=== PATIENT | female | born 1965 | race Caucasian/White ===

== ENCOUNTER 2016-10-12 11:24 | Emergency (ER) | payer OTHER ==
[~2016-10-12] VITALS: Ht 172.7 cm; Wt 79.5 kg
[~2016-10-12 11:24] MED LIST: ALBU8HFA IH; GABA-531 PO; INSLAN SQ; METF500T PO; SIMV10TA6 PO
[2016-10-12 11:36] LABS: GLUCOSE,POINT OF CARE 159 MG/DL (70-110)
[2016-10-12] MEDS ORDERED: HydrOXYzine PAMOATE 50 MG CAPSULE PO ONE (12:15)
[2016-10-12] MEDS ORDERED: IBUPROFEN 600 MG TABLET PO ONE (13:15)
[2016-10-12 15:10] VITALS: BP 118/56
== END 2016-10-12 15:12 | disposition home or self-care (01) ==
LOC: EMS 11:31
DX: F41.9 Anxiety disorder, unspecified (principal); E11.40 Type 2 diabetes mellitus with diabetic neuropathy, unspecified; J45.909 Unspecified asthma, uncomplicated; E78.00 Pure hypercholesterolemia, unspecified; F17.210 Nicotine dependence, cigarettes, uncomplicated; Z79.4 Long term (current) use of insulin
CPT/HCPCS: 82962; 99283

== ENCOUNTER 2017-01-24 02:06 | Emergency (ER) | payer OTHER ==
[~2017-01-24] VITALS: Ht 172.7 cm; Wt 80.0 kg
[2017-01-24] MEDS ORDERED: PRIM50 PO (02:12)
[2017-01-24] MEDS ORDERED: DIPH25 PO (02:12)
[2017-01-24] MEDS ORDERED: MONT10TA21 PO (02:12)
[2017-01-24] MEDS ORDERED: KDUR10 PO (02:12)
[2017-01-24 02:22] LABS: GLUCOSE,POINT OF CARE 234 MG/DL (70-110)
[2017-01-24] MEDS ORDERED: DEXTROSE 50%-WATER 25 GM/50 ML SYRINGE IVP ONE (02:30)
[2017-01-24 02:40] LABS: ANION GAP 12 mmol/L (8-16); CALCIUM, TOTAL 8.5 mg/dL (8.8-10.5); CARBON DIOXIDE 25 mmol/L (22-29); CHLORIDE 98 mmol/L (98-107); CREATININE 0.66 mg/dL (0.60-1.30); GLOMERULAR FILTR. RATE CALC > 60 mL/min (>60); POTASSIUM 3.3 mmol/L (3.5-5.1); SODIUM SERUM 135 mmol/L (136-145); UREA NITROGEN, BLOOD 15 mg/dL (7-18)
[2017-01-24 02:43] LABS: BASOPHILS % (AUTO) 0.4 % (0.0-2.0); EOSINOPHILS % (AUTO) 0.3 % (1.0-6.0); HEMATOCRIT 35.4 % (36-46); HEMOGLOBIN 11.3 g/dL (12.0-16.0); LYMPHOCYTES # (AUTO) 0.6 K/uL (1.0-4.8); LYMPHOCYTES % (AUTO) 7.5 % (22.0-44.0); MEAN CORPUSCULAR HEMOGLOBIN 26.9 pg (26.0-34.0); MEAN CORPUSCULAR HGB CONC 31.9 G/dL (31.0-37.0); MEAN CORPUSCULAR VOLUME 84 fL (80-100); MONOCYTES # (AUTO) 0.1 K/uL (0.1-1.0); MONOCYTES % (AUTO) 1.8 % (2.0-9.0); NEUTROPHILS # (AUTO) 7.2 K/uL (1.8-7.7); PLATELET COUNT (AUTO) 448 K/uL (150-450); RED BLOOD CELL COUNT(AUTO) 4.19 MIL/uL (4.00-5.20)
[2017-01-24 02:46] LABS: ALANINE AMINOTRANSFERASE 24 U/L (12-78); ALBUMIN 3.7 g/dL (3.4-5.0); ASPARTATE AMINOTRANSFERASE 26 U/L (15-37); BILIRUBIN,TOTAL 0.2 mg/dL (0.1-1.0); TOTAL PROTEIN, SERUM 7.3 g/dL (6.4-8.2)
[2017-01-24 02:54] LABS: APPEARANCE,URINE CLEAR (CLEAR); GLUCOSE, URINE (UA) >=1000 mg/dL (NEGATIVE); KETONES,URINE >=80 mg/dL (NEGATIVE); LEUKOCYTE ESTERASE ,URINE NEGATIVE (NEGATIVE); OCCULT BLOOD,URINE NEGATIVE (NEGATIVE); PROTEIN,URINE NEGATIVE (NEGATIVE)
[2017-01-24 03:05] LABS: RBC,URINE 0-2 /HPF (0-2); SQUAMOUS EPITHELIAL CELL,UR Rare /LPF (None Seen); WBC,URINE 0-2 /HPF (0-5)
[2017-01-24 03:52] LABS: GLUCOSE,POINT OF CARE 162 MG/DL (70-110)
[2017-01-24 04:52] LABS: GLUCOSE COMMENT 1 Doctor Notified; GLUCOSE,POINT OF CARE 101 MG/DL (70-110)
[2017-01-24 05:32] VITALS: BP 131/81
== END 2017-01-24 05:54 | disposition home or self-care (01) ==
LOC: EMS 02:07
DX: E11.649 Type 2 diabetes mellitus with hypoglycemia without coma (principal); J45.909 Unspecified asthma, uncomplicated; E78.00 Pure hypercholesterolemia, unspecified; F17.210 Nicotine dependence, cigarettes, uncomplicated; Z79.4 Long term (current) use of insulin
CPT/HCPCS: 36415; 51702; 80053; 80307; 81001; 82962; 84703; 85025; 93005; 96374; 99285; G0480

== ENCOUNTER 2017-03-22 19:40 | Emergency (ER) | payer OTHER ==
[~2017-03-22] VITALS: Ht 172.7 cm; Wt 72.7 kg
[~2017-03-22 19:40] MED LIST changes: +DIPH25 PO; -GABA-531 PO; +KDUR10 PO; +MONT10TA21 PO; +PRIM50 PO
[2017-03-22 20:02] LABS: GLUCOSE,POINT OF CARE 109 MG/DL (70-110)
[2017-03-22] MEDS ORDERED: KETOROLAC TROMETHAMINE 60 MG/2 ML VIAL IM ONE (21:15)
[2017-03-22 22:00] VITALS: BP 129/84
== END 2017-03-22 22:00 | disposition home or self-care (01) ==
LOC: EMS 19:42
DX: M25.551 Pain in right hip (principal); E11.9 Type 2 diabetes mellitus without complications; E78.00 Pure hypercholesterolemia, unspecified; J45.909 Unspecified asthma, uncomplicated; F17.210 Nicotine dependence, cigarettes, uncomplicated; Z79.4 Long term (current) use of insulin
CPT/HCPCS: 73502; 82962; 96372; 99284; J1885

== ENCOUNTER 2017-10-02 22:49 | Emergency (ER) | payer OTHER ==
[~2017-10-02] VITALS: Ht 172.7 cm; Wt 74.5 kg
[2017-10-02] MEDS ORDERED: SERT50TA12 PO (22:59)
[2017-10-02 23:03] LABS: GLUCOSE,POINT OF CARE 110 MG/DL (70-110)
[2017-10-03] MEDS ORDERED: METHOCARBAMOL 500 MG TABLET PO ONE
[2017-10-03] MEDS ORDERED: KETOROLAC TROMETHAMINE 60 MG/2 ML VIAL IM ONE
[2017-10-03] MEDS ORDERED: MORPHINE SULFATE 4 MG/ML SYRINGE IM ONE (00:45)
[2017-10-03 01:47] VITALS: BP 117/69
== END 2017-10-03 01:49 | disposition home or self-care (01) ==
LOC: EMS 22:54
DX: S16.1XXA Strain of muscle, fascia and tendon at neck level, initial encounter (principal); J45.909 Unspecified asthma, uncomplicated; E11.9 Type 2 diabetes mellitus without complications; E78.00 Pure hypercholesterolemia, unspecified; F17.210 Nicotine dependence, cigarettes, uncomplicated; X58.XXXA Exposure to other specified factors, initial encounter; Y93.89 Activity, other specified; Y92.89 Other specified places as the place of occurrence of the external cause; Y99.8 Other external cause status
CPT/HCPCS: 82962; 96372; 99284; J1885; J2270

== ENCOUNTER 2017-11-15 11:53 | Emergency (ER) | payer OTHER ==
[~2017-11-15] VITALS: Ht 167.6 cm; Wt 71.8 kg
[~2017-11-15 11:53] MED LIST changes: +SERT50TA12 PO
[2017-11-15] MEDS ORDERED: BECL8.7A6 IH (12:04)
[2017-11-15] MEDS ORDERED: ALBU8HFA4 IH (12:04)
[2017-11-15 12:07] LABS: GLUCOSE,POINT OF CARE 74 MG/DL (70-110)
[2017-11-15 12:53] LABS: GLUCOSE,POINT OF CARE 64 MG/DL (70-110)
[2017-11-15 13:41] LABS: BASOPHILS % (AUTO) 0.8 % (0.0-2.0); EOSINOPHILS % (AUTO) 7.3 % (1.0-6.0); HEMATOCRIT 34.5 % (36-46); HEMOGLOBIN 11.7 g/dL (12.0-16.0); LYMPHOCYTES # (AUTO) 1.7 K/uL (1.0-4.8); LYMPHOCYTES % (AUTO) 26.3 % (22.0-44.0); MEAN CORPUSCULAR HEMOGLOBIN 28.1 pg (26.0-34.0); MEAN CORPUSCULAR HGB CONC 33.8 G/dL (31.0-37.0); MEAN CORPUSCULAR VOLUME 83 fL (80-100); MONOCYTES # (AUTO) 0.4 K/uL (0.1-1.0); MONOCYTES % (AUTO) 6.6 % (2.0-9.0); NEUTROPHILS # (AUTO) 3.8 K/uL (1.8-7.7); PLATELET COUNT (AUTO) 454 K/uL (150-450); RED BLOOD CELL COUNT(AUTO) 4.15 MIL/uL (4.00-5.20); RED CELL DISTRIBUTION WIDTH 16.8 % (11.5-14.5)
[2017-11-15 13:51] LABS: GLUCOSE,POINT OF CARE 120 MG/DL (70-110)
[2017-11-15 13:52] LABS: ANION GAP 6 mmol/L (8-16); CALCIUM, TOTAL 9.2 mg/dL (8.8-10.5); CARBON DIOXIDE 30 mmol/L (22-29); CHLORIDE 102 mmol/L (98-107); CREATININE 0.64 mg/dL (0.60-1.30); GLOMERULAR FILTR. RATE CALC > 60 mL/min (>60); GLUCOSE,RANDOM 90 mg/dL (70-110); POTASSIUM 3.6 mmol/L (3.5-5.1); SODIUM SERUM 138 mmol/L (136-145); UREA NITROGEN, BLOOD 13 mg/dL (7-18)
[2017-11-15 13:57] LABS: ALANINE AMINOTRANSFERASE 22 U/L (12-78); ALBUMIN 3.6 g/dL (3.4-5.0); ALKALINE PHOSPHATASE 83 U/L (46-116); ASPARTATE AMINOTRANSFERASE 12 U/L (15-37); BILIRUBIN,TOTAL 0.2 mg/dL (0.1-1.0); TOTAL PROTEIN, SERUM 7.2 g/dL (6.4-8.2)
[2017-11-15 13:58] LABS: AMPHET/METH SCREEN,URINE NEGATIVE (NEGATIVE); BARBITURATE SCREEN, URINE NEGATIVE (NEGATIVE); BENZODIAZEPINES SCREEN,URINE NEGATIVE (NEGATIVE); CANNABINOID SCREEN,URINE NEGATIVE (NEGATIVE); COCAINE SCREEN,URINE NEGATIVE (NEGATIVE); METHADONE SCREEN, URINE NEGATIVE (NEGATIVE); OPIATE SCREEN,URINE NEGATIVE (NEGATIVE); PHENCYCLIDINE SCREEN,URINE NEGATIVE (NEGATIVE)
[2017-11-15 14:13] LABS: APPEARANCE,URINE CLEAR (CLEAR); BILIRUBIN,URINE NEGATIVE (NEGATIVE); GLUCOSE, URINE (UA) NEGATIVE (NEGATIVE); KETONES,URINE NEGATIVE (NEGATIVE); LEUKOCYTE ESTERASE ,URINE NEGATIVE (NEGATIVE); NITRATE,URINE NEGATIVE (NEGATIVE); OCCULT BLOOD,URINE NEGATIVE (NEGATIVE); PROTEIN,URINE NEGATIVE (NEGATIVE); UROBILINOGEN,URINE 0.2 mg/dL (<=1.0)
[2017-11-15 15:10] VITALS: BP 130/87
[2017-11-15] MEDS ORDERED: METHOCARBAMOL 500 MG TABLET PO ONE (15:15)
[2017-11-15] MEDS ORDERED: KETOROLAC TROMETHAMINE 30 MG/ML VIAL IVP ONE (15:15)
[2017-11-16] MEDS ORDERED: CALC1TAB97 PO (08:25)
[2017-11-16] MEDS ORDERED: BECL8.7A7 IH (08:25)
[2017-11-16] MEDS ORDERED: DOCU250C90 PO (08:25)
[2017-11-16] MEDS ORDERED: SIMV10TA6 PO (08:25)
[2017-11-16] MEDS ORDERED: DIPH25CA48 PO (08:25)
== END 2017-11-15 15:37 | disposition home or self-care (01) ==
LOC: EMS 11:55
DX: S16.1XXA Strain of muscle, fascia and tendon at neck level, initial encounter (principal); J45.909 Unspecified asthma, uncomplicated; E11.9 Type 2 diabetes mellitus without complications; E78.00 Pure hypercholesterolemia, unspecified; F17.210 Nicotine dependence, cigarettes, uncomplicated; F19.90 Other psychoactive substance use, unspecified, uncomplicated; Z79.4 Long term (current) use of insulin; X58.XXXA Exposure to other specified factors, initial encounter; Y93.89 Activity, other specified; Y92.89 Other specified places as the place of occurrence of the external cause; Y99.8 Other external cause status
CPT/HCPCS: 36415; 80053; 80307; 81003; 82962; 85025; 96374; 99285; G0480; J1885

== ENCOUNTER 2017-11-16 08:12 | Emergency (ER) | payer OTHER ==
[~2017-11-16] VITALS: Ht 167.6 cm; Wt 71.8 kg
[~2017-11-16 08:12] MED LIST changes: +ALBU8HFA4 IH; +BECL8.7A6 IH
[2017-11-16] MEDS ORDERED: DIPH25CA48 PO (08:25)
[2017-11-16] MEDS ORDERED: BECL8.7A7 IH (08:25)
[2017-11-16] MEDS ORDERED: SIMV10TA6 PO (08:25)
[2017-11-16] MEDS ORDERED: DOCU250C90 PO (08:25)
[2017-11-16] MEDS ORDERED: CALC1TAB97 PO (08:25)
[2017-11-16 08:32] LABS: GLUCOSE,POINT OF CARE 91 MG/DL (70-110)
[2017-11-16] MEDS ORDERED: BUPIVACAINE HCL/PF 0.25% 10 ML VIAL INJ ONE (09:00)
[2017-11-16 10:49] VITALS: BP 120/70
== END 2017-11-16 11:03 | disposition home or self-care (01) ==
LOC: EMS 08:13
DX: L03.114 Cellulitis of left upper limb (principal); E11.9 Type 2 diabetes mellitus without complications; E78.00 Pure hypercholesterolemia, unspecified; J45.909 Unspecified asthma, uncomplicated; F15.90 Other stimulant use, unspecified, uncomplicated; F17.210 Nicotine dependence, cigarettes, uncomplicated; Z79.4 Long term (current) use of insulin
CPT/HCPCS: 10160; 82962; 99284; J3490

== ENCOUNTER 2017-11-17 10:17 | Emergency (ER) | payer OTHER ==
[~2017-11-17] VITALS: Ht 167.6 cm; Wt 71.8 kg
[~2017-11-17 10:17] MED LIST changes: +BECL8.7A7 IH; +CALC1TAB97 PO; +DIPH25CA48 PO; +DOCU250C90 PO
[2017-11-17 10:43] LABS: GLUCOSE,POINT OF CARE 85 MG/DL (70-110)
[2017-11-17] MEDS ORDERED: POVIDONE-IODINE 10% 15 ML SOLUTION UD TP ONE (11:15)
[2017-11-17] MEDS ORDERED: LIDOCAINE HCL 1% 10 ML VIAL INJ ONE (11:15)
[2017-11-17] MEDS ORDERED: CefTRIAXone SODIUM 1 GM/VIAL IM ONE (12:00)
[2017-11-17] MEDS ORDERED: BACITRACIN 0.9 GM PACKET OINTMENT TP ONE (12:00)
[2017-11-17] MEDS ORDERED: LIDOCAINE HCL/PF 1% 2 ML VIAL IM ONE (12:00)
[2017-11-17 12:24] VITALS: BP 120/77
== END 2017-11-17 12:20 | disposition home or self-care (01) ==
LOC: EMS 10:18
DX: L02.414 Cutaneous abscess of left upper limb (principal); E11.9 Type 2 diabetes mellitus without complications; E78.00 Pure hypercholesterolemia, unspecified; J45.909 Unspecified asthma, uncomplicated; F12.10 Cannabis abuse, uncomplicated; F17.210 Nicotine dependence, cigarettes, uncomplicated; Z79.4 Long term (current) use of insulin; Z90.710 Acquired absence of both cervix and uterus
CPT/HCPCS: 10060; 82962; 96372; 99283; J0696; J3490

== ENCOUNTER 2017-11-17 21:24 | Emergency (ER) | payer OTHER ==
[~2017-11-17] VITALS: Ht 168.9 cm; Wt 81.8 kg
[2017-11-17 21:40] VITALS: BP 127/72
[2017-11-17 21:48] LABS: GLUCOSE,POINT OF CARE 102 MG/DL (70-110)
== END 2017-11-17 22:29 | disposition left against medical advice (07) ==
LOC: EMS 21:24
DX: Z53.21 Procedure and treatment not carried out due to patient leaving prior to being seen by health care provider (principal)
CPT/HCPCS: 82962

== ENCOUNTER 2017-11-18 16:54 | Emergency (ER) | payer OTHER ==
[~2017-11-18 16:54] MED LIST changes: -ALBU8HFA4 IH; -BECL8.7A6 IH; -DIPH25 PO; -KDUR10 PO; -SERT50TA12 PO
== END 2017-11-18 19:31 | disposition left against medical advice (07) ==
LOC: EMS 17:34
DX: Z53.21 Procedure and treatment not carried out due to patient leaving prior to being seen by health care provider (principal)

== ENCOUNTER 2017-11-19 08:16 | Emergency (ER) | payer OTHER ==
[~2017-11-19] VITALS: Ht 167.6 cm; Wt 71.5 kg
[2017-11-19 08:57] VITALS: BP 109/81
== END 2017-11-19 09:11 | disposition home or self-care (01) ==
LOC: EMS 08:22
DX: Z48.00 Encounter for change or removal of nonsurgical wound dressing (principal); E11.9 Type 2 diabetes mellitus without complications; E78.00 Pure hypercholesterolemia, unspecified; J45.909 Unspecified asthma, uncomplicated; F15.90 Other stimulant use, unspecified, uncomplicated; F17.210 Nicotine dependence, cigarettes, uncomplicated
CPT/HCPCS: 99283

== ENCOUNTER 2017-12-30 18:02 | Emergency (ER) | payer OTHER ==
[~2017-12-30] VITALS: Ht 167.6 cm; Wt 66.4 kg
[2017-12-30 18:32] LABS: GLUCOSE,POINT OF CARE 112 MG/DL (70-110)
[2017-12-30] MEDS ORDERED: ONDANSETRON HCL 4 MG/2 ML VIAL IVP ONE (20:00)
[2017-12-30] MEDS ORDERED: SODIUM CHLORIDE 0.9% 1,000 ML IV ONE (20:00)
[2017-12-30] MEDS ORDERED: MethylPREDNISolone SOD SUCC 125 MG/2 ML VIAL IVP ONE (20:00)
[2017-12-30] MEDS ORDERED: DiphenhydrAMINE HCL 50 MG/ML VIAL IVP ONE (20:00)
[2017-12-30] MEDS ORDERED: FAMOTIDINE 10 MG/ML 2 ML VIAL IVP ONE (20:15)
[2017-12-30] MEDS ORDERED: DEXAMETHASONE SOD PHOS 4 MG/ML VIAL IVP ONE (20:15)
[2017-12-30 21:52] VITALS: BP 126/84
== END 2017-12-30 22:06 | disposition home or self-care (01) ==
LOC: EMS 18:03
DX: T78.40XA Allergy, unspecified, initial encounter (principal); J45.909 Unspecified asthma, uncomplicated; E11.9 Type 2 diabetes mellitus without complications; E78.00 Pure hypercholesterolemia, unspecified; F17.210 Nicotine dependence, cigarettes, uncomplicated; F19.90 Other psychoactive substance use, unspecified, uncomplicated; Z79.4 Long term (current) use of insulin
CPT/HCPCS: 82962; 96374; 96375; 99285; 99406; J1100; J1200; J2405; J3490; J7030

== ENCOUNTER 2018-02-11 11:27 | Emergency (ER) | payer OTHER ==
[~2018-02-11] VITALS: Ht 167.6 cm; Wt 81.8 kg
[2018-02-11] MEDS ORDERED: SERT100T12 PO (11:37)
[2018-02-11 11:39] LABS: GLUCOSE,POINT OF CARE 92 MG/DL (70-110)
[2018-02-11 12:53] LABS: BASOPHILS % (AUTO) 1.1 % (0.0-2.0); EOSINOPHILS % (AUTO) 8.5 % (1.0-6.0); HEMATOCRIT 32.2 % (36-46); HEMOGLOBIN 11.1 g/dL (12.0-16.0); LYMPHOCYTES # (AUTO) 1.5 K/uL (1.0-4.8); LYMPHOCYTES % (AUTO) 32.5 % (22.0-44.0); MEAN CORPUSCULAR HEMOGLOBIN 28.6 pg (26.0-34.0); MEAN CORPUSCULAR HGB CONC 34.3 G/dL (31.0-37.0); MEAN CORPUSCULAR VOLUME 83 fL (80-100); MONOCYTES # (AUTO) 0.4 K/uL (0.1-1.0); MONOCYTES % (AUTO) 8.8 % (2.0-9.0); NEUTROPHILS # (AUTO) 2.3 K/uL (1.8-7.7); NEUTROPHILS % (AUTO) 49.1 % (40.0-70.0); PLATELET COUNT (AUTO) 411 K/uL (150-450); RED BLOOD CELL COUNT(AUTO) 3.87 MIL/uL (4.00-5.20); RED CELL DISTRIBUTION WIDTH 14.9 % (11.5-14.5)
[2018-02-11 13:04] LABS: APPEARANCE,URINE CLEAR (CLEAR); BILIRUBIN,URINE NEGATIVE (NEGATIVE); GLUCOSE, URINE (UA) NEGATIVE (NEGATIVE); KETONES,URINE NEGATIVE (NEGATIVE); LEUKOCYTE ESTERASE ,URINE NEGATIVE (NEGATIVE); NITRATE,URINE NEGATIVE (NEGATIVE); OCCULT BLOOD,URINE NEGATIVE (NEGATIVE); PH,URINE 6.5 (5.0-8.0); PROTEIN,URINE NEGATIVE (NEGATIVE); UROBILINOGEN,URINE 0.2 mg/dL (<=1.0)
[2018-02-11 13:05] LABS: INR 0.9 (0.9-1.1); PROTHROMBIN TIME 9.9 SEC (9.4-11.6)
[2018-02-11 13:12] LABS: ANION GAP 6 mmol/L (8-16); CALCIUM, TOTAL 8.1 mg/dL (8.8-10.5); CARBON DIOXIDE 26 mmol/L (22-29); CHLORIDE 104 mmol/L (98-107); CREATININE 0.57 mg/dL (0.60-1.30); GLOMERULAR FILTR. RATE CALC > 60 mL/min (>60); GLUCOSE,RANDOM 93 mg/dL (70-110); POTASSIUM 3.9 mmol/L (3.5-5.1); SODIUM SERUM 136 mmol/L (136-145); UREA NITROGEN, BLOOD 14 mg/dL (7-18)
[2018-02-11 13:16] LABS: ALANINE AMINOTRANSFERASE 22 U/L (12-78); ALBUMIN 3.4 g/dL (3.4-5.0); ALKALINE PHOSPHATASE 55 U/L (46-116); ASPARTATE AMINOTRANSFERASE 15 U/L (15-37); BILIRUBIN,TOTAL 0.2 mg/dL (0.1-1.0); TOTAL PROTEIN, SERUM 6.7 g/dL (6.4-8.2)
[2018-02-11 13:17] LABS: AMPHET/METH SCREEN,URINE NEGATIVE (NEGATIVE); BARBITURATE SCREEN, URINE POSITIVE (NEGATIVE); BENZODIAZEPINES SCREEN,URINE NEGATIVE (NEGATIVE); CANNABINOID SCREEN,URINE NEGATIVE (NEGATIVE); COCAINE SCREEN,URINE NEGATIVE (NEGATIVE); METHADONE SCREEN, URINE NEGATIVE (NEGATIVE); OPIATE SCREEN,URINE NEGATIVE (NEGATIVE)
[2018-02-11 13:18] LABS: PHENCYCLIDINE SCREEN,URINE NEGATIVE (NEGATIVE)
[2018-02-11 13:39] VITALS: BP 123/89
== END 2018-02-11 13:53 | disposition home or self-care (01) ==
LOC: EMS 11:29
DX: R20.2 Paresthesia of skin (principal); J44.9 Chronic obstructive pulmonary disease, unspecified; J45.909 Unspecified asthma, uncomplicated; E11.9 Type 2 diabetes mellitus without complications; E78.00 Pure hypercholesterolemia, unspecified; F15.90 Other stimulant use, unspecified, uncomplicated
CPT/HCPCS: 70450; 93005; 99285

== ENCOUNTER 2018-02-14 14:50 | Emergency (ER) | payer OTHER ==
[~2018-02-14] VITALS: Ht 165.1 cm; Wt 75.0 kg
[~2018-02-14 14:50] MED LIST changes: -DIPH25CA48 PO; -INSLAN SQ; +SERT100T12 PO
[2018-02-14 15:07] LABS: GLUCOSE,POINT OF CARE 88 MG/DL (70-110)
[2018-02-14] MEDS ORDERED: POVIDONE-IODINE 10% 15 ML SOLUTION UD TP ONE (16:15)
[2018-02-14] MEDS ORDERED: IBUPROFEN 800 MG TABLET PO ONE (16:15)
[2018-02-14] MEDS ORDERED: BACITRACIN 0.9 GM PACKET OINTMENT TP ONE (16:15)
[2018-02-14 17:00] VITALS: BP 124/77
== END 2018-02-14 17:35 | disposition home or self-care (01) ==
LOC: EMS 14:52
DX: S61.213A Laceration without foreign body of left middle finger without damage to nail, initial encounter (principal); J45.909 Unspecified asthma, uncomplicated; E11.9 Type 2 diabetes mellitus without complications; E78.00 Pure hypercholesterolemia, unspecified; Z98.51 Tubal ligation status; Z90.710 Acquired absence of both cervix and uterus; Z79.899 Other long term (current) drug therapy; Z79.4 Long term (current) use of insulin; W26.0XXA Contact with knife, initial encounter; Y93.89 Activity, other specified; Y92.89 Other specified places as the place of occurrence of the external cause; Y99.8 Other external cause status
CPT/HCPCS: 99284

== ENCOUNTER 2019-11-09 20:13 | Emergency (ER) | payer OTHER ==
[~2019-11-09] VITALS: Ht 167.6 cm; Wt 65.0 kg
[~2019-11-09 20:13] MED LIST changes: -SIMV10TA6 PO; +SIMV10TA97 PO
[2019-11-09 20:38] LABS: GLUCOSE,POINT OF CARE 140 MG/DL (70-110)
[2019-11-10] MEDS ORDERED: HYDROCODONE/ACETAMINOPHEN 5-325 MG TABLET PO ONE (00:15)
[2019-11-10 00:35] VITALS: BP 133/80
== END 2019-11-10 00:36 | disposition home or self-care (01) ==
LOC: EMS 20:15
DX: B02.9 Zoster without complications (principal); M79.602 Pain in left arm; J45.909 Unspecified asthma, uncomplicated; E11.9 Type 2 diabetes mellitus without complications; E78.00 Pure hypercholesterolemia, unspecified; F19.90 Other psychoactive substance use, unspecified, uncomplicated; Z86.73 Personal history of transient ischemic attack (TIA), and cerebral infarction without residual deficits; Z90.710 Acquired absence of both cervix and uterus; Z79.84 Long term (current) use of oral hypoglycemic drugs